=== PATIENT | male | born 1995 | race Caucasian/White ===

== ENCOUNTER 2018-12-25 23:05 | Emergency (ER) | payer MEDICAID ==
[~2018-12-25] VITALS: Ht 175.3 cm; Wt 97.5 kg
[2018-12-25 23:10] VITALS: BP 132/75
--- NOTE | 2018-12-25 23:10 | NUR ---
TO BED # 11 AMBULATORY
--- NOTE | 2018-12-25 23:17 | NUR ---
PT ARRIVED TO ED C/O ABD PAIN, N,V (3 EPISODES),D (2 EPISODES) X YESTERDAY. RATES PAIN 10/10 AND DESCRIBES IT BURNING. BS ACTIVE IN ALL QAUDS. ABD IS SOFT, ROUND AND TENDERNESS ON LEFT QUADS AND EPIGRASTRIC WELL. DENIES ANY FEVER. PT STATES HE CANT HOLD DOWN FLUIDS OR FOOD. VSS. LIPS DRY AND CHAPPED. NKA. PMH: DM TYPE 1.
--- NOTE | 2018-12-25 23:27 | NUR ---
Dr. Brand examining patient.
[2018-12-25] MEDS ORDERED: KETOROLAC 60 MG/2 ML VIAL IM ONE (23:30)
[2018-12-25] MEDS ORDERED: ONDANSETRON 4 MG ODT PO ONE (23:30)
--- NOTE | 2018-12-25 23:51 | NUR ---
Patient discharged with v/s stable. Written and verbal after care instructions given and explained. Patient alert, oriented and verbalized understanding of instructions. Ambulatory with steady gait. All questions addressed prior to discharge. ID band removed. Patient advised to follow up with PMD. Rx of MOTRIN, ZOFRAN, AND IMODIUM given. Patient educated on indication of medication including possible reaction and side effects. Opportunity to ask questions provided and answered.
[2018-12-25 23:52] VITALS: BP 132/75
== END 2018-12-25 23:51 | disposition home or self-care (01) ==
LOC: MED 23:05
DX: R10.13 Epigastric pain (principal); R11.2 Nausea with vomiting, unspecified; R19.7 Diarrhea, unspecified; E11.9 Type 2 diabetes mellitus without complications
CPT/HCPCS: 96372; 99283; J1885; Q0162